=== PATIENT | female | born 1940 | race Caucasian/White ===

== ENCOUNTER → 2016-10-01 20:12 | Outpatient (CLI) | payer MEDICARE ==
[2016-10-01 20:47] LABS: PHENYTOIN (DILANTIN) 7.7 ug/mL (10.0-20.0); VALPROIC ACID (DEPAKOTE) 66.5 ug/mL (50.0-100.0)
== END | disposition home or self-care (01) ==
LOC: D.LABREF 20:12
PROVIDERS: Family Medicine
DX: G40.909 Epilepsy, unspecified, not intractable, without status epilepticus (principal)

== ENCOUNTER 2017-03-18 16:13 | Outpatient (CLI) | payer MEDICARE | END 2017-03-18 16:38 | LOC: D.MAMMO 16:13 | DX: Z85.3 Personal history of malignant neoplasm of breast (principal) ==

== ENCOUNTER → 2017-05-21 17:08 | Outpatient (CLI) | payer MEDICARE ==
[2017-05-21 21:00] LABS: VALPROIC ACID (DEPAKOTE) 54.3 ug/mL (50.0-100.0)
== END | disposition home or self-care (01) ==
LOC: D.LABREF 17:08
PROVIDERS: Family Medicine
DX: G40.909 Epilepsy, unspecified, not intractable, without status epilepticus (principal)

== ENCOUNTER 2017-12-08 12:28 | Emergency (ER) | payer MEDICARE ==
[2017-12-08 14:07] LABS: BASOPHILS 0.3 % (0-2); EOSINOPHILS 0.7 % (0-7); HEMATOCRIT 44.8 % (36.0-48.0); IMMATURE GRANULOCYTES 0.3 % (0-5); LYMPHOCYTES 30.1 % (15-50); MCH 33.7 pg (26.0-34.0); MCHC 33.5 g/dL (31.0-37.0); MCV 100.7 fL (80.0-100.0); MONOCYTES 7.8 % (2-11); NEUTROPHILS 60.8 % (40-80); PLATELET COUNT 221 10x3/uL (130-400); RBC 4.45 10x6/uL (4.00-5.40); RDW 14.2 % (11.5-14.5); WBC 7.1 10x3/uL (4.8-10.8)
[2017-12-08 14:17] LABS: INR 1.01 (0.85-1.17); PROTIME 12.9 SECONDS (11.6-15.0)
[2017-12-08 14:27] LABS: ALBUMIN 3.5 g/dL (3.4-5.0); ALKALINE PHOSPHATASE 101 U/L (46-116); ALT (SGPT) 29 U/L (10-68); BILIRUBIN - TOTAL 0.38 mg/dL (0.2-1.3); CALC OSMOLALITY 279 mosm/kg (275-300); CALCIUM 9.4 mg/dL (8.5-10.1); CARBON DIOXIDE 30.3 mmol/L (21.0-32.0); CHLORIDE - SERUM 102 mmol/L (98-107); CREATININE - SERUM 0.8 mg/dL (0.6-1.3); GLUCOSE 93 mg/dL (74-106); POTASSIUM - SERUM 4.1 mmol/L (3.5-5.1); PROTEIN - SERUM 8.1 g/dL (6.4-8.2); SODIUM 139 mmol/L (136-145); UREA NITROGEN 18 mg/dL (7-18); eGFR NON AFRICAN AMERICAN 74 mL/min (90-120)
[2017-12-08 14:35] LABS: CREATINE KINASE 70 UL (21-215); MAGNESIUM - SERUM 1.9 mg/dL (1.8-2.4); PHENYTOIN (DILANTIN) 6.2 ug/mL (10.0-20.0); PRO BNP 340 pg/mL (0-450); THYROID STIMULATING HORMONE 2.78 uIU/mL (0.36-3.74); VALPROIC ACID (DEPAKOTE) 56.5 ug/mL (50.0-100.0)
[2017-12-08 14:37] LABS: TROPONIN-I < 0.017 ng/mL (0.000-0.060)
== END 2017-12-08 16:04 | disposition home or self-care (01) ==
LOC: D.ER 12:28
PROVIDERS: Nurse Practitioner Family
DX: H11.31 Conjunctival hemorrhage, right eye (principal)

== ENCOUNTER 2018-06-17 11:10 | Emergency (ER) | payer MEDICARE ==
[~2018-06-17] VITALS: Ht 162.6 cm; Wt 54.5 kg
[2018-06-17 11:13] VITALS: Ht 162.6 cm; Wt 54.5 kg
[2018-06-17] MEDS ORDERED: DEPAKENE250 MG PO (11:16)
[2018-06-17] MEDS ORDERED: DEPAKOTE ER250 MG PO (11:18)
[2018-06-17] MEDS ORDERED: DILANTIN100 MG PO (11:19)
[2018-06-17] MEDS ORDERED: PROPRANOLOL HCL60 MG PO (11:21)
[2018-06-17] MEDS ORDERED: REMERON15 MG PO (11:22)
[2018-06-17] MEDS ORDERED: ZOLOFT50 MG PO (11:23)
[2018-06-17] MEDS ORDERED: TIROSINT25 MCG PO (11:23)
[2018-06-17] MEDS ORDERED: VITAMIN D31000 UNI2 PO (11:24)
[2018-06-17] MEDS ORDERED: iron PO (11:24)
[2018-06-17] MEDS ORDERED: COLACE100 MG PO (11:25)
[2018-06-17] MEDS ORDERED: OPTIVE SENSITI1 EACH EACH EYE (11:25)
[2018-06-17] MEDS ORDERED: LUTEIN20 MG PO (11:25)
[2018-06-17 12:11] LABS: BASOPHILS 0.1 % (0-2); EOSINOPHILS 0 % (0-7); HEMATOCRIT 38.3 % (36.0-48.0); HEMOGLOBIN 13.2 g/dL (12-16); IMMATURE GRANULOCYTES 0.3 % (0-5); LYMPHOCYTES 6.1 % (15-50); MCH 33.6 pg (26.0-34.0); MCHC 34.5 g/dL (31.0-37.0); MCV 97.5 fL (80.0-100.0); MEAN PLATELET VOLUME 11.3 fL (7.4-10.4); MONOCYTES 16.7 % (2-11); NEUTROPHILS 76.8 % (40-80); RBC 3.93 10x6/uL (4.00-5.40); RDW 14.1 % (11.5-14.5); WBC 18.9 10x3/uL (4.8-10.8)
[2018-06-17 12:13] LABS: PLATELET COUNT 163 10x3/uL (130-400)
[2018-06-17 12:21] LABS: ALKALINE PHOSPHATASE 56 U/L (46-116); ALT (SGPT) 35 U/L (10-68); BILIRUBIN - TOTAL 0.46 mg/dL (0.2-1.3); CALC OSMOLALITY 277 mosm/kg (275-300); CALCIUM 8.6 mg/dL (8.5-10.1); CARBON DIOXIDE 27.8 mmol/L (21.0-32.0); CHLORIDE - SERUM 103 mmol/L (98-107); CREATININE - SERUM 0.7 mg/dL (0.6-1.3); GLUCOSE 108 mg/dL (74-106); POTASSIUM - SERUM 3.5 mmol/L (3.5-5.1); PROTEIN - SERUM 6.6 g/dL (6.4-8.2); SODIUM 137 mmol/L (136-145); UREA NITROGEN 20 mg/dL (7-18); eGFR NON AFRICAN AMERICAN 86 mL/min (90-120)
[2018-06-17 12:32] LABS: CKMB 1.5 U/L (0.0-3.6); TROPONIN-I 0.038 ng/mL (0.000-0.060)
[2018-06-17 12:33] LABS: CREATINE KINASE 1260 UL (21-215)
[2018-06-17 12:49] LABS: APPEARANCE CLEAR (CLEAR); COLOR YELLOW (YELLOW); NITRITE NEGATIVE (NEGATIVE); SPECIFIC GRAVITY 1.015 (1.005-1.020)
[2018-06-17 12:50] LABS: BILIRUBIN NEGATIVE (NEGATIVE); GLUCOSE NEGATIVE (NEGATIVE); KETONE LARGE mg/dL (NEGATIVE); PROTEIN 2+ mg/dL (NEGATIVE); UROBILINOGEN NORMAL (NORMAL)
[2018-06-17 12:51] LABS: AMORPHOUS SEDIMENT >1+ /lpf (NONE SEEN); BACTERIA MANY /hpf (NONE SEEN); EPITHELIAL CELLS OCC /hpf (0-5); MUCUS <1+ /lpf (NONE SEEN); RED CELLS - URINE 0-5 /hpf (0-5)
[2018-06-17 14:50] VITALS: BP 126/59
[2018-06-18 15:16] VITALS: Ht 162.6 cm; Wt 54.5 kg
== END 2018-06-17 14:45 | disposition home or self-care (01) ==
LOC: D.ER 11:10
PROVIDERS: Family Medicine
DX: S00.31XA Abrasion of nose, initial encounter (principal); W18.30XA Fall on same level, unspecified, initial encounter; Y93.89 Activity, other specified; Y92.019 Unspecified place in single-family (private) house as the place of occurrence of the external cause; S80.01XA Contusion of right knee, initial encounter; N39.0 Urinary tract infection, site not specified; R00.0 Tachycardia, unspecified; I49.3 Ventricular premature depolarization; G40.909 Epilepsy, unspecified, not intractable, without status epilepticus

== ENCOUNTER 2018-06-18 14:38 | Observation (INO) | payer MEDICARE ==
[~2018-06-18] VITALS: Ht 162.6 cm; Wt 54.5 kg
--- NOTE | ~2018-06-18 | HP ---
PATIENT: MATT FRANCOIS MEDICAL RECORD: [id number] ACCOUNT: [id number] LOCATION:[address] : 44 ADMISSION DATE: 06/18/18 PCP: FERNANDO RICO DO HISTORY AND PHYSICAL EXAMINATION HISTORY OF PRESENT ILLNESS: A 78-year-old female had a reported fall in her bathroom approximately 36 hours ago. She has a history of seizure disorder. She had multiple contusions to her head, face, back of her head, knees, more consistent with seizure activity than a fall. She went to the Emergency Room dazed and bruised, had blood in her urine and elevated white count. Had CTs of her head, which showed no acute findings. The patient did not want to be admitted at that time, was treated for urinary tract infection and discharged here for followup today, brought in by her brother. She remains slow to response. No focal deficits. Facial contusions are still present and tenderness to the back of her scalp. She has bruising to her knees. Of note, she also had elevated CK with normal cardiac enzymes consistent with possible seizure activity or being on the floor for extended period of time. She lives alone. Again, she is brought in by her brother. REVIEW OF SYSTEMS: CONSTITUTIONAL: No acute change in weight or appetite. HEENT: Mild headache. Denies visual changes, tinnitus, epistaxis, or dysphagia. CARDIOVASCULAR: Denies chest pain, denies palpitations. PULMONARY: Denies hemoptysis, denies night sweats. GASTROINTESTINAL: Denies hematemesis, hematochezia or melena. GENITOURINARY: Denies dysuria. MUSCULOSKELETAL: Tenderness to her right knee, which was examined and radiographs obtained in the ER with no significant findings. SOCIAL HISTORY: The patient lives alone, nonsmoker, nondrinker. ALLERGIES: LISTED DOXYCYCLINE. CURRENT MEDICATIONS: P.r.n. Tylenol 3 for back pain, she has a remote compression fracture. Levothyroxine 25 mcg daily, mirtazapine 15 mg daily, phenytoin extended release 100 mg b.i.d., propranolol 60 mg daily, sertraline 50 mg daily, valproic acid 250 mg 5 capsules daily. PAST MEDICAL HISTORY: Significant for seizure disorder since childhood or teenage, has not seen a neurologist due to logistics in many years and lack of available neurologist in this area, has been reportedly stable on her current medications. PHYSICAL EXAMINATION: VITAL SIGNS: Weight 123 pounds, blood pressure 112/70, heart rate 72, respirations 18, O2 saturation 98% on room air, temperature 98.8. GENERAL: Alert, oriented, slow to respond, unsteady gait. HEENT: Head is normocephalic. Subacute ecchymosis to the bridge of the nose under eyes. Tenderness to the back of the head. Eyes: Pupils are equally round and reactive. Ears: Canals patent. TMs intact. Nose: Nares patent. Throat: No erythema, no exudates. NECK: Supple. Range of motion intact. HEART: Regular rate and rhythm. No S3, S4. No rub. LUNGS: Clear to auscultation bilaterally. Breathing is nonlabored. HISTORY AND PHYSICAL [id number] MATT FRANCOIS ABDOMEN: Soft, nontender. Bowel sounds all 4 quadrants. EXTREMITIES: Present times 4. NEUROLOGIC: No definitive focal deficits. She is slow to respond, consistent with delayed seizure response/postictal phase, which would also account for her injuries that she does not remember how she obtained. LABORATORY DATA: Urinalysis: No glucose, 1+ bilirubin, trace ketones, trace leukocytes, 2+ protein and 1+ blood. CBC: White count elevated at 19,300, hemoglobin 13.5, hematocrit 40.9, platelets 167. ASSESSMENT AND PLAN: Head contusion, leukocytosis, likely recurrent seizure activity. The patient is admitted. MRI of the head without contrast. We will admit to the PCU with telemetry. Check a TSH, CK, BNP on admission. Blood cultures times 2 with the leukocytosis. Phenytoin ER 100 mg 1 p.o. b.i.d., propranolol 60 mg daily, sertraline 50 mg daily, valproic acid 250 mg 5 tablets daily. EKG on admission. CBC, chemistry, CK in a.m. Depakote and phenytoin levels in the a.m. IV normal saline at 88 mL per hour.. Levothyroxine 25 mcg 1 p.o. daily. Full liquid diet. If patient has recurrent seizure activity, we will treat and arrange for transfer to a facility with neurology available. TRANSINT:[id number] Voice Confirmation ID: [id number] DOCUMENT ID: [id number] FERNANDO RICO DO CC: [id number] DICTATION DATE: 06/18/18 1513 FOUNDER PRESIDENT AND CEO: 06/18/18 1823 ADM IN [facility] [address] [id number]
[~2018-06-18 14:38] MED LIST: COLACE100 MG PO; DEPAKENE250 MG PO; DEPAKOTE ER250 MG PO; DILANTIN100 MG PO; LUTEIN20 MG PO; OPTIVE SENSITI1 EACH EACH EYE; PROPRANOLOL HCL60 MG PO; REMERON15 MG PO; TIROSINT25 MCG PO; VITAMIN D31000 UNI2 PO; ZOLOFT50 MG PO; iron PO
[2018-06-18 15:16] VITALS: BP 123/53; Ht 162.6 cm; Wt 54.5 kg
[2018-06-18 15:41] VITALS: BP 123/53
[2018-06-18 17:01] LABS: CALC OSMOLALITY 276 mosm/kg (275-300); CALCIUM 8.1 mg/dL (8.5-10.1); CARBON DIOXIDE 26.9 mmol/L (21.0-32.0); CHLORIDE - SERUM 103 mmol/L (98-107); CREATININE - SERUM 0.8 mg/dL (0.6-1.3); GLUCOSE 86 mg/dL (74-106); POTASSIUM - SERUM 3.3 mmol/L (3.5-5.1); SODIUM 137 mmol/L (136-145); THYROID STIMULATING HORMONE 1.43 uIU/mL (0.36-3.74); UREA NITROGEN 24 mg/dL (7-18); eGFR NON AFRICAN AMERICAN 74 mL/min (90-120)
[2018-06-18 17:08] LABS: CREATINE KINASE 505 UL (21-215)
[2018-06-18 21:04] VITALS: BP 108/51
[2018-06-19 05:48] VITALS: BP 109/45
[2018-06-19 07:38] LABS: BASOPHILS 0.2 % (0-2); EOSINOPHILS 0.5 % (0-7); HEMATOCRIT 32.8 % (36.0-48.0); HEMOGLOBIN 11.1 g/dL (12-16); IMMATURE GRANULOCYTES 0.2 % (0-5); LYMPHOCYTES 17.9 % (15-50); MCH 33.1 pg (26.0-34.0); MCHC 33.8 g/dL (31.0-37.0); MCV 97.9 fL (80.0-100.0); MEAN PLATELET VOLUME 11.5 fL (7.4-10.4); MONOCYTES 12.1 % (2-11); NEUTROPHILS 69.1 % (40-80); PLATELET COUNT 155 10x3/uL (130-400); RBC 3.35 10x6/uL (4.00-5.40); RDW 14.5 % (11.5-14.5)
[2018-06-19 07:44] LABS: WBC 12.2 10x3/uL (4.8-10.8)
[2018-06-19 08:00] VITALS: BP 127/68
[2018-06-19 08:25] LABS: CALCIUM 7.9 mg/dL (8.5-10.1); CARBON DIOXIDE 21.6 mmol/L (21.0-32.0); CHLORIDE - SERUM 107 mmol/L (98-107); CREATININE - SERUM 0.6 mg/dL (0.6-1.3); GLUCOSE 84 mg/dL (74-106); SODIUM 139 mmol/L (136-145); VALPROIC ACID (DEPAKOTE) 21.5 ug/mL (50.0-100.0); eGFR NON AFRICAN AMERICAN > 90 mL/min (90-120)
[2018-06-19 08:27] LABS: CALC OSMOLALITY 278 mosm/kg (275-300); CREATINE KINASE 286 UL (21-215); UREA NITROGEN 17 mg/dL (7-18)
[2018-06-19 08:50] LABS: CKMB 0.5 U/L (0.0-3.6)
[2018-06-19 11:37] VITALS: BP 114/51
[2018-06-19 15:32] VITALS: BP 119/54
[2018-06-19 20:29] VITALS: BP 113/66
[2018-06-20 04:30] VITALS: BP 132/79
[2018-06-20 05:34] LABS: BASOPHILS 0.3 % (0-2); EOSINOPHILS 1.3 % (0-7); HEMATOCRIT 33.3 % (36.0-48.0); HEMOGLOBIN 11.3 g/dL (12-16); IMMATURE GRANULOCYTES 0.2 % (0-5); LYMPHOCYTES 20.1 % (15-50); MCH 33.5 pg (26.0-34.0); MCHC 33.9 g/dL (31.0-37.0); MCV 98.8 fL (80.0-100.0); MEAN PLATELET VOLUME 11.7 fL (7.4-10.4); MONOCYTES 11.9 % (2-11); NEUTROPHILS 66.2 % (40-80); PLATELET COUNT 175 10x3/uL (130-400); RBC 3.37 10x6/uL (4.00-5.40); RDW 14.4 % (11.5-14.5)
[2018-06-20 05:39] LABS: WBC 8.8 10x3/uL (4.8-10.8)
[2018-06-20 06:01] LABS: ALBUMIN 2.3 g/dL (3.4-5.0); ALKALINE PHOSPHATASE 53 U/L (46-116); ALT (SGPT) 45 U/L (10-68); CALCIUM 8.2 mg/dL (8.5-10.1); CHLORIDE - SERUM 106 mmol/L (98-107); GLUCOSE 85 mg/dL (74-106); POTASSIUM - SERUM 3.8 mmol/L (3.5-5.1); PROTEIN - SERUM 5.9 g/dL (6.4-8.2); SODIUM 139 mmol/L (136-145)
[2018-06-20 06:13] LABS: CALC OSMOLALITY 274 mosm/kg (275-300); CREATININE - SERUM 0.4 mg/dL (0.6-1.3); UREA NITROGEN 7 mg/dL (7-18); eGFR NON AFRICAN AMERICAN > 90 mL/min (90-120)
[2018-06-20 08:23] VITALS: BP 134/76
[2018-06-20 11:43] VITALS: BP 131/70
[2018-06-20 15:35] VITALS: BP 118/62
[2018-06-20 20:00] VITALS: BP 131/67
[2018-06-20 23:54] VITALS: BP 119/62
[2018-06-21 04:00] VITALS: BP 135/75
[2018-06-21 08:32] VITALS: BP 150/90
== END 2018-06-21 11:54 | disposition home or self-care (01) ==
LOC: D.M2 14:38 → UNDOADMIN 14:38 → OBSVTIME 14:38 → D.M2 14:38 → EDSTATUS 07-12 13:33
PROVIDERS: Family Medicine
DX: G40.909 Epilepsy, unspecified, not intractable, without status epilepticus (principal); N39.0 Urinary tract infection, site not specified; S00.83XA Contusion of other part of head, initial encounter; S80.02XA Contusion of left knee, initial encounter; S80.01XA Contusion of right knee, initial encounter; W01.0XXA Fall on same level from slipping, tripping and stumbling without subsequent striking against object, initial encounter; S00.31XA Abrasion of nose, initial encounter; R79.89 Other specified abnormal findings of blood chemistry

== ENCOUNTER → 2018-06-23 16:41 | Outpatient (CLI) | payer MEDICARE ==
[2018-06-18 15:16] VITALS: BMI 20.6
== END | disposition home or self-care (01) ==
LOC: D.MAMMO 10:15
DX: Z12.31 Encounter for screening mammogram for malignant neoplasm of breast (principal)